=== PATIENT | female | born 1990 | race Caucasian/White ===

== ENCOUNTER 2019-05-14 13:47 | Outpatient (CLI) | payer BC, SELFPAY ==
--- NOTE | ~2019-05-14 | XR_ITS ---
EXAMINATION: XR chest 2V 05/14/2019 14:15 INDICATION: Cough, fever and body aches PROCEDURE: 2 view chest COMPARISON: No prior studies for comparison. FINDINGS: The lungs are clear. The cardiomediastinal silhouette is within normal limits. There are no pleural effusions. There is no pneumothorax suspected. IMPRESSION: 1: NO ACUTE CARDIOPULMONARY DISEASE. Reviewed, dictated and finalized at location A.
[2019-05-14 14:02] LABS: Basophils Absolute Auto 0.03 K/mm3 (0.00-0.10); Basophils Percent Auto 0.7 % (0.0-1.0); Eosinophils Absolute Auto 0.07 K/mm3 (0.02-0.50); Eosinophils Percent Auto 1.6 % (1.0-6.0); Hematocrit 36.9 % (35.0-49.0); Hemoglobin 11.8 g/dL (12.0-15.0); Immature Granulocyte Absolute 0.05 K/mm3 (0.00-0.00); Immature Granulocyte Percent A 1.1 % (0.0-0.0); Lymphocytes Absolute Auto 0.53 K/mm3 (1.10-4.50); Lymphocytes Percent Auto 12.2 % (18.0-42.0); Mean Corpuscular Hemoglobin 25.6 pg (27.0-31.0); Mean Platelet Volume 9.7 fl (9.2-11.8); Monocytes Absolute Auto 0.48 K/mm3 (0.10-0.90); Neutrophils Absolute Auto 3.2 K/mm3 (1.7-7.2); Neutrophils Percent Auto 73.4 % (50.0-70.0); Platelet Count Result 241 K/mm3 (150-420); Red Blood Count 4.61 M/mm3 (4.20-5.40); Red Cell Distribution Width 15.3 % (11.6-14.4); White Blood Count 4.4 K/mm3 (4.8-10.8)
[2019-05-14 14:19] LABS: Influenza Control Valid (Valid)
== END 2019-05-14 13:48 | disposition home or self-care (01) ==
LOC: CHSLAB 13:52
PROVIDERS: PCP Internal Medicine; Visit Provider Internal Medicine
DX: R05 Cough (principal); R50.9 Fever, unspecified; R52 Pain, unspecified; Z20.828 Contact with and (suspected) exposure to other viral communicable diseases
CPT/HCPCS: 36415; 71046; 85025; 87804

== ENCOUNTER → 2021-03-28 15:58 | Outpatient (REF) | payer BC, SELFPAY | LOC: ANHLAB 15:58 | PROVIDERS: PCP Internal Medicine; Visit Provider Nurse Practitioner | DX: D22.39 Melanocytic nevi of other parts of face (principal) | CPT/HCPCS: 88305 ==

== ENCOUNTER 2022-02-06 13:31 | Outpatient (CLI) | payer BC, SELFPAY ==
[2022-02-06 14:56] LABS: HIV 1/2 Ab P24 Ag Result Negative (Negative)
[2022-02-06 15:16] LABS: Hepatitis B Surface Antigen Negative (Negative)
[2022-02-06 15:33] LABS: Hepatitis C Virus Antibody Negative (Negative)
[2022-02-07 07:29] LABS: Rapid Plasma Reagin Non-Reactive (NonReactive)
== END 2022-02-06 13:32 | disposition home or self-care (01) ==
PROVIDERS: PCP Internal Medicine; Visit Provider Obstetrics & Gynecology
DX: Z20.2 Contact with and (suspected) exposure to infections with a predominantly sexual mode of transmission (principal); Z11.3 Encounter for screening for infections with a predominantly sexual mode of transmission
CPT/HCPCS: 36415; 86592; 86703; 86803; 87340; 87491; 87591; G0432

== ENCOUNTER 2025-01-05 13:24 | Outpatient (CLI) | payer BC, SELFPAY ==
--- NOTE | ~2025-01-05 | US_ITS ---
EXAMINATION: US venous doppler JAIDEN CHAPARRO, 01/05/2025 13:42 QUANTITATIVE MANAGER HISTORY: LUE SWELLING Comparison: None Technique: Multiple aguayo scale and color Doppler sonographic images were obtained of the internal jugular, subclavian, axillary, brachial, basilar, radial and ulnar veins. Findings: Venous System:Normal flow, augmentation and compressibility. No echogenic thrombus identified. Soft tissues: Soft tissues are unremarkable. Impression: Negative for DVT. Reviewed, dictated and finalized at location P. TITATIVE MANAGER Impression: Negative for DVT.
[2025-01-05 13:39] LABS: Hematocrit 36.4 % (35.0-49.0); Hemoglobin 11.4 g/dL (12.0-15.0); Mean Corpuscular HGB Conc 31.3 g/dL (32-36); Mean Corpuscular Hemoglobin 23.7 pg (27.0-31.0); Mean Corpuscular Volume 75.5 fL (78.0-102.0); Platelet Count Result 312 K/mm3 (150-420); Red Blood Count 4.82 M/mm3 (4.20-5.40); White Blood Count 8.1 K/mm3 (4.8-10.8)
[2025-01-05 14:02] LABS: INR 0.9; Partial Thromboplastin Time 25.1 Sec (23.9-30.70); Prothrombin Time 10.1 Seconds (9.50-12.1)
[2025-01-05 14:56] LABS: Alanine Aminotransferase 30 U/L (6-35); Albumin Level 4.4 g/dL (3.5-5.1); Alkaline Phosphatase 134 U/L (38-126); Anion Gap 13 mmol/L (4-12); Aspartate Amino Transferase 26 U/L (14-36); Blood Urea Nitrogen 14 mg/dL (7-17); Calcium 9.4 mg/dL (8.4-10.2); Carbon Dioxide 24 mmol/L (22-30); Chloride 106 mmol/L (98-107); Estimated Glomerular Filt Rate > 60; Glucose 135 mg/dL (65-110); Osmolality Calculated 298 mOsm/kg (285-295); Potassium 3.8 mmol/L (3.4-5.0); Sodium 143 mmol/L (137-145); Total Protein 7.2 g/dL (6.3-8.2)
[2025-01-05 17:26] LABS: Bilirubin,Total < 0.1 mg/dL (0.2-1.3)
== END 2025-01-05 13:25 | disposition home or self-care (01) ==
PROVIDERS: PCP Internal Medicine; Visit Provider Nurse Practitioner Family
DX: R22.32 Localized swelling, mass and lump, left upper limb (principal)
CPT/HCPCS: 36415; 80053; 85027; 85610; 85730; 93971

== ENCOUNTER 2025-01-08 12:55 | Emergency (ER) | payer BC, SELFPAY ==
[2025-01-08 12:55] VITALS: BP 127/73; PULSE 85; RESP 20; O2SAT 100
--- NOTE | 2025-01-08 13:05 | PC.NURSE ---
pt speaking with dr meyers on phone.
--- OUTSIDE RECORDS SUMMARY | 2025-01-08 15:50 | XMS_ITS | Clinical Summary ---
Author Organization [facility] [address] [place] Address [address] [place] [id number] Care Team Providers Care Coconut Cooker Name Role Phone Unknown, Notinfile Primary Care Provider Unavail able Allergies No known active allergies Medications No known medications Active Problems No known active problems Surgical History Surgery Date Site/Laterality Comments BACK SURGERY 02/19/2015 - 02/19/2016 Social History Tobacco Use Types Packs/Day Years Used Date Smoking Tobacco: Never Smokeless Tobacco: Never AUDIT-C Answer Date Recorded Q1: How often do you have a drink containing alc ohol? 2-4 times a month 03/05/2021 Average Number of Drinks Not on file 022 Frequency of Binge Drinking Not on file 02/19 Personal Safety Answer Date Recorded Getting School Help Needed Not on file 04/15 Comments Unknown Sex and Gender Information Value Date Recorded Sex Assigned at Not on file Legal Sex Female 9:03 PM TOOL SETTER APPRENTICE Gender Identity Not on file Sexual Orientation Not on file Last Filed Vital Signs Vital Sign Reading Time Taken Comments Blood Pressure 131/89 03/05/2021 5:35 PM TOOL SETTER APPRENTICE Pulse 133 03/05/2021 5:35 PM TOOL SETTER APPRENTICE Temperature 36.6 C (97.8 F) 03/05/2021 5:35 PM TOOL SETTER APPRENTICE Respiratory Rate 16 03/05/2021 5:35 PM TOOL SETTER APPRENTICE Oxygen Saturation 97% 03/05/2021 5:35 PM TOOL SETTER APPRENTICE Inhaled Oxygen Concentration - - Weight - - Height 172.7 cm (5' 8) 03/05/2021 5:35 PM TOOL SETTER APPRENTICE Body Mass Index - - Plan of Treatment Not on file Insurance [employer] Care Teams Coconut Cooker Relationship Specialty Start Date End Date Unknown, Notinfile PCP - General 03/05/21
--- OUTSIDE RECORDS SUMMARY | 2025-01-08 15:50 | XMS_ITS | Clinical Summary ---
Author Organization [facility] Address [address] [place] [id number] Care Team Providers Care Student Affairs Vice President Name Role Phone Unavailable Primary Care Provider Unavailabl e Social History Tobacco Use Types Packs/Day Years Used Date Smoking Tobacco: Never Assessed Comments Unknown Sex and Gender Information Value Date Recorded Sex Assigned at Not on file Legal Sex Female 8:13 PM CDT Gender Identity Not on file Sexual Orientation Not on file Last Filed Vital Signs Vital Sign Reading Time Taken Comments Blood Pressure 102/60 09/11/2011 4:49 PM CDT Pulse 72 09/11/2011 4:49 PM CDT Temperature - - Respiratory Rate - - Oxygen Saturation - - Inhaled Oxygen Concentration - - Weight 66.7 kg (147 lb) 09/11/2011 4:49 PM CDT Height 172.7 cm (5' 8) 09/11/2011 4:49 PM CDT Body Mass Index 22.35 09/11/2011 4:49 PM CDT Plan of Treatment Health Maintenance Due Date Last Done Comments Cervical Cancer Screening Pa p Smear (Age 30 to 64) Every 3 Years 1992 Annual Physical 11/09/1995 Hepatitis C 2010 DTaP, Tdap and Td Vaccines ( 1 - Tdap) 11/09/2011 Hepatitis B Vaccines (1 of 3 - 19+ 3-dose series) 11/09/2011 HPV Vaccines (1 - 3-dose SCD M series) 11/09/2019 Cervical Cancer Screening Pa p with HPV Testing (Age 30 to 64) Every 5 Years 2022 Cervical Cancer Screening with HPV 2022 COVID-19 Vaccine (2024-2 6 season) 2024 Influenza Adult (#1) 2024 Hepatitis A Vaccines Aged Out No long er eligible based on patient's age to complete this topic Meningococcal B Vaccine Aged Out No l onger eligible based on patient's age to complete this topic Meningococcal Vaccine Aged Out No bishop jes eligible based on patient's age to complete this topic Pneumococcal Vaccine: Pediat rics (0 to 5 Years) and At-Risk Patients (6 to 49 Years) Aged Out No longer eligible b ased on patient's age to complete this topic RSV Immunizations Under 20 Months Aged Out No longer eligible based on patient's age to complete this topic
== END 2025-01-08 13:11 | disposition left against medical advice (07) ==
LOC: CHSED 13:18
PROVIDERS: Emergency Provider Emergency Medicine; PCP Internal Medicine
DX: L98.8 Other specified disorders of the skin and subcutaneous tissue (principal)
CPT/HCPCS: 99199

== ENCOUNTER 2025-01-08 13:43 | Observation (INO) | payer BC, SELFPAY ==
[2025-01-08 13:53] VITALS: BP 140/88; PULSE 70; RESP 20; TEMP 36.8; O2SAT 100
--- NOTE | 2025-01-08 15:11 | ED.EXTPRO ---
HPI - Extremity Problem General Chief complaint: Extremity Problem,Nontraumatic <MONIE Acuna Last Filed: 01/11/25 14:11> Stated complaint: left arm infection <MONIE Acuna Last Filed: 01/11/25 14:11> Time Seen by Provider: 01/08/25 15:12 <MONIE Acuna Last Filed: 01/11/25 14:11> Focused HPI: Patient is a 34-year-old female who presents to the ED with report of infection to her left arm. Patient reports she first noticed an area of redness on Sunday night to her L mid forearm. She had a slight streak of redness to her elbow. States she has seen her PCP for this. Was initially started on Augmentin and Doxycycline, but denied improvement. Was switched to Ciprofloxacin and Bactrim last night, but reports the redness is not encircling her forearm and streaking all the way to her armpit. Reports warmth. Denies fevers. GENERAL: Well-appearing, well-nourished, and in no acute distress. HEAD: Normocephalic, atraumatic. CHEST: Clear to auscultation. ?No respiratory distress. HEART: Regular rate and rhythm.? Radial pulses intact MSK: Area of deep purple discoloration to L ventral forearm, approx 2x3cm irregular shape. Surrounding erythema, extending diffusely and circumferentially throughout L forearm with warmth, swelling, focal tenderness to palpation. Lymphangitis streaking extending to L axillary region. Small vesicular lesion to ventral forearm with serous fluid NEURO: ?Alert and oriented x3. Patient screened in triage and initial orders placed.? ?Additional care and disposition to be based upon?diagnostic testing and treatment. <MONIE Acuna Last Filed: 01/11/25 14:11> Source: patient <MONIE Acuna Last Filed: 01/11/25 14:11> Mode of arrival: ambulatory <MONIE Acuna Last Filed: 01/11/25 14:11> Limitations: no limitations <MONIE Acuna Last Filed: 01/11/25 14:11> History of Present Illness HPI Narrative: I agree with the HPI <Gurvinder Tucker MD - Last Filed: 01/11/25 14:15> Related Data Home medications: Home Medications ?Medication ?Instructions ?Recorded ?Confirmed ?Last Taken ?Type ascorbic acid (vitamin C) 500 mg 500 mg PO DAILY 11/24/20 01/08/25 Unknown History capsule cholecalciferol (vitamin D3) 25 25 mcg PO DAILY 11/24/20 01/08/25 Unknown History mcg (1,000 unit) capsule multivitamin (Daily Multi-Vitamin 1 tablet PO DAILY 11/24/20 01/08/25 Unknown History tablet) multivitamin with minerals 1 tablet PO DAILY 11/24/20 01/08/25 Unknown History (Hair,Skin and Nails tablet) vitamin E mixed 400 unit capsule 400 unit PO DAILY 11/24/20 01/08/25 Unknown History escitalopram oxalate 20 mg tablet 20 mg PO DAILY 02/15/21 01/08/25 Unknown History melatonin 10 mg capsule 10 mg PO HS 01/08/25 01/08/25 Unknown History <Mia Singh PA-C - Last Filed: 01/11/25 14:11> Allergies/Adverse reactions: Allergies Allergy/AdvReac Type Severity Reaction Status Date / Time No Known Allergies Allergy Verified 01/08/25 13:56 <Mia Singh PA-C - Last Filed: 01/11/25 14:11> Review of Systems Review of Systems: All systems reviewed & are unremarkable except as noted in HPI and below <Gurvinder Tucker MD - Last Filed: 01/11/25 14:15> [facility] Past Medical History Medical History: Medical History LGSIL on Pap smear of cervix <Mia Singh PA-C - Last Filed: 01/11/25 14:11> Surgical History Surgical History: Surgical History History of back surgery <Mia Singh PA-C - Last Filed: 01/11/25 14:11> Family History Family History: Family History (Reviewed 02/14/23 @ 15:37 by Shahnaz Ramirez [facility]) Grandparent Lymphoma Father Hypertension <Mia Singh PA-C - Last Filed: 01/11/25 14:11> Social History Social History: Social History (Updated 02/14/23 @ 15:37 by Shahnaz Ramirez [facility]) Smoking status: Never smoker Alcohol intake: former Substance use: never Substance use type: does not use Do You Feel Safe in your Home?: Yes Lack of Transportation: No Lack of Food: Never True Current Housing: I Have Housing Concerned About Future Housing: No Difficulty Paying Gas/Electric Bills: No Difficulty Paying for Meds: No Currently Unemployed: No Education: Bachelor's Degree Difficulty w/ Childcare or Family Care: No Spiritual care concerns: No <Mia Singh PA-C - Last Filed: 01/11/25 14:11> Exam Narrative: APPEARANCE: Well appearing, no pain, no distress, well-nourished. HEAD: normocephalic, atraumatic. EYES: PERRLA/EOMI, conjunctivae clear. NOSE: Normal no drainage EARS:TMS clear with good light reflex. THROAT: Pharynx clear, no exudate. NECK: Supple. No adenopathy, no masses. RESPIRATORY: Airway patent, respirations nonlabored. Clear to auscultation bilaterally, no rales, rhonchi, wheezing. CARDIOVASCULAR: Regular rate and rhythm without murmurs rubs or gallops. ABDOMINAL: Soft, nontender, nondistended, normal bowel sounds MUSCULOSKELETAL: Moves all extremities. Strength/ROM intact, No edema, No calf tenderness. NEURO: Alert. Cranial nerves II through XII intact. Good gait. Good coordination SKIN: Cellulitis of left forearm tracking to left axilla PSYCHIATRIC: Normal affect/mood. <Gurvinder Tucker MD - Last Filed: 01/11/25 14:15> Course Vital Signs Vital signs: Vital Signs Temperature 98.3 F 01/08/25 13:53 Pulse Rate 70 01/08/25 13:53 Respiratory Rate 20 01/08/25 13:53 Blood Pressure 140/88 01/08/25 13:53 Pulse Oximetry 100 01/08/25 13:53 Oxygen Delivery Room Air 01/08/25 13:53 Temperature 97.8 F 01/10/25 14:00 Pulse Rate 65 01/10/25 14:00 Respiratory Rate 17 01/10/25 14:00 Blood Pressure 155/67 H 01/10/25 14:00 Pulse Oximetry 98 01/10/25 14:00 Oxygen Delivery Room Air 01/10/25 08:00 <Mia Singh PA-C - Last Filed: 01/11/25 14:11> Vital Signs Temperature 98.3 F 01/08/25 13:53 Pulse Rate 70 01/08/25 13:53 Respiratory Rate 20 01/08/25 13:53 Blood Pressure 140/88 01/08/25 13:53 Pulse Oximetry 100 01/08/25 13:53 Oxygen Delivery Room Air 01/08/25 13:53 Temperature 97.8 F 01/10/25 14:00 Pulse Rate 65 01/10/25 14:00 Respiratory Rate 17 01/10/25 14:00 Blood Pressure 155/67 H 01/10/25 14:00 Pulse Oximetry 98 01/10/25 14:00 Oxygen Delivery Room Air 01/10/25 08:00 <Gurvinder Tucker MD - Last Filed: 01/11/25 14:15> MDM - Extremity (Nontraumatic) MDM Narrative Medical decision making narrative: MSE by TRISTIN in triage. <Mia Singh PA-C - Last Filed: 01/11/25 14:11> MSE by TRISTIN in triage. 34-year-old female present to the emergency department for evaluation for worsening cellulitis of the left upper extremity. Patient had been on log went in and then patient was transitioned to Cipro and Bactrim and patient is still having worsening symptoms. Patient does have a leukocytosis and worsening cellulitis. Patient was admitted for further had IV antibiotics. Case was discussed with hospitalist. Patient discomfort with plan for admission. Patient was stable at time of admission. <Gurvinder Tucker MD - Last Filed: 01/11/25 14:15> Differential Diagnosis Differential diagnosis: Likely cellulitis <Gurvinder Tucker MD - Last Filed: 01/11/25 14:15> Lab Data Result diagrams: 01/10/25 04:13 01/10/25 04:13 <DAYAMI AcunaC - Last Filed: 01/11/25 14:11> Labs: Lab Results 01/08/25 Range/Units 15:29 WBC 11.1 H (4.5-10.0) K/mm3 RBC 4.55 (4.2-5.4) M/mm3 Hgb 10.8 L (12.0-15.0) g/dL Hct 34.5 L (37.0-47.0) % MCV 75.8 L (80-100) fl MCH 23.7 L (26-34) pg MCHC 31.3 L (32-36) g/dl RDW 15.8 H (11.5-14.5) % Plt Count 288 (150-375) k/mm3 MPV 9.2 (7.4-10.4) fl Immature Gran % (Auto) 0.4 (0-0.5) % Neut % (Auto) 67.0 (45.5-73.1) % Lymph % (Auto) 20.4 (18.3-44.2) % [place] % (Auto) 8.2 (2.6-8.5) % Eos % (Auto) 3.5 (0-4.4) % Baso % (Auto) 0.5 (0.2-1.2) % Lymph # (Auto) 2.26 (0.9-3.2) K/mm3 [place] # (Auto) 0.9 H (0.1-0.6) K/mm3 Eos # (Auto) 0.4 H (0-0.3) K/mm3 Baso # (Auto) 0.1 (0.0-0.1) K/mm3 Abs Immat Gran (auto) 0.04 H (0.00-0.031) K/mm3 Absolute Neuts (auto) 7.4 H (1.3-6.7) K/mm3 Absolute Nucleated RBC 0.000 (0.0-0.012) K/mm3 Nucleated RBC % 0.0 (0.0-0.2) % ESR 61 H (0-20) mm/hr Sodium 138 (137-145) mmol/L Potassium 4.2 (3.4-5.0) mmol/L Chloride 107 (98-107) mmol/L Carbon Dioxide 22 (22-30) mmol/L Anion Gap 9 (4-12) mmol/L BUN 12 (7-17) mg/dL Creatinine 0.66 L (0.7-1.0) mg/dL Estim Creat Clear Calc 123 ml/min Estimated GFR > 60 (59 - ) Glucose 100 (65-110) mg/dL Lactic Acid 1.4 (0.7-2.0) mmol/L Calcium 9.0 (8.4-10.2) mg/dL Total Bilirubin 0.3 (0.2-1.3) mg/dL AST 22 (14-36) U/L ALT 28 (6-35) U/L Alkaline Phosphatase 144 H (38-126) U/L C-Reactive Protein 4.2 H (<1.0) mg/dL Total Protein 7.4 (6.3-8.2) g/dL Albumin 4.1 (3.5-5.1) g/dL <Mia Singh PA-C - Last Filed: 01/11/25 14:11> Lab Results 01/08/25 Range/Units 15:29 WBC 11.1 H (4.5-10.0) K/mm3 RBC 4.55 (4.2-5.4) M/mm3 Hgb 10.8 L (12.0-15.0) g/dL Hct 34.5 L (37.0-47.0) % MCV 75.8 L (80-100) fl MCH 23.7 L (26-34) pg MCHC 31.3 L (32-36) g/dl RDW 15.8 H (11.5-14.5) % Plt Count 288 (150-375) k/mm3 MPV 9.2 (7.4-10.4) fl Immature Gran % (Auto) 0.4 (0-0.5) % Neut % (Auto) 67.0 (45.5-73.1) % Lymph % (Auto) 20.4 (18.3-44.2) % [place] % (Auto) 8.2 (2.6-8.5) % Eos % (Auto) 3.5 (0-4.4) % Baso % (Auto) 0.5 (0.2-1.2) % Lymph # (Auto) 2.26 (0.9-3.2) K/mm3 [place] # (Auto) 0.9 H (0.1-0.6) K/mm3 Eos # (Auto) 0.4 H (0-0.3) K/mm3 Baso # (Auto) 0.1 (0.0-0.1) K/mm3 Abs Immat Gran (auto) 0.04 H (0.00-0.031) K/mm3 Absolute Neuts (auto) 7.4 H (1.3-6.7) K/mm3 Absolute Nucleated RBC 0.000 (0.0-0.012) K/mm3 Nucleated RBC % 0.0 (0.0-0.2) % ESR 61 H (0-20) mm/hr Sodium 138 (137-145) mmol/L Potassium 4.2 (3.4-5.0) mmol/L Chloride 107 (98-107) mmol/L Carbon Dioxide 22 (22-30) mmol/L Anion Gap 9 (4-12) mmol/L BUN 12 (7-17) mg/dL Creatinine 0.66 L (0.7-1.0) mg/dL Estim Creat Clear Calc 123 ml/min Estimated GFR > 60 (59 - ) Glucose 100 (65-110) mg/dL Lactic Acid 1.4 (0.7-2.0) mmol/L Calcium 9.0 (8.4-10.2) mg/dL Total Bilirubin 0.3 (0.2-1.3) mg/dL AST 22 (14-36) U/L ALT 28 (6-35) U/L Alkaline Phosphatase 144 H (38-126) U/L C-Reactive Protein 4.2 H (<1.0) mg/dL Total Protein 7.4 (6.3-8.2) g/dL Albumin 4.1 (3.5-5.1) g/dL <Gurvinder Tucker MD - Last Filed: 01/11/25 14:15> Discharge Plan Discharge Clinical Impression: Cellulitis of left upper extremity Cellulitis Qualifiers: Site of cellulitis: extremity Site of cellulitis of extremity: upper extremity Laterality: left Qualified Code(s): L03.114 - Cellulitis of left upper limb <Mia Singh PA-C - Last Filed: 01/11/25 14:11> Patient Disposition: Still a Patient <Mia Singh PA-C - Last Filed: 01/11/25 14:11> Condition: Stable <Mia Singh PA-C - Last Filed: 01/11/25 14:11>
[2025-01-08 15:36] LABS: Hematocrit 34.5 % (37.0-47.0); Hemoglobin 10.8 g/dL (12.0-15.0); Immature Granulocyte Percent A 0.4 % (0-0.5); Lymphocytes Absolute Auto 2.26 K/mm3 (0.9-3.2); Mean Corpuscular HGB Conc 31.3 g/dl (32-36); Mean Corpuscular Hemoglobin 23.7 pg (26-34); Mean Corpuscular Volume 75.8 fl (80-100); Nucleated Red Blood Cells Absolute Auto 0.000 K/mm3 (0.0-0.012); Nucleated Red Blood Cells Perc 0.0 % (0.0-0.2); Platelet Count Result 288 k/mm3 (150-375); Red Blood Count 4.55 M/mm3 (4.2-5.4); White Blood Count 11.1 K/mm3 (4.5-10.0)
[2025-01-08 15:49] LABS: Alanine Aminotransferase 28 U/L (6-35); Albumin Level 4.1 g/dL (3.5-5.1); Alkaline Phosphatase 144 U/L (38-126); Anion Gap 9 mmol/L (4-12); Aspartate Amino Transferase 22 U/L (14-36); Bilirubin,Total 0.3 mg/dL (0.2-1.3); Blood Urea Nitrogen 12 mg/dL (7-17); CRP 4.2 mg/dL (<1.0); Calcium 9.0 mg/dL (8.4-10.2); Carbon Dioxide 22 mmol/L (22-30); Chloride 107 mmol/L (98-107); Estimated CRCL calculation 123 ml/min; Estimated Glomerular Filt Rate > 60; Glucose 100 mg/dL (65-110); Potassium 4.2 mmol/L (3.4-5.0); Sodium 138 mmol/L (137-145); Total Protein 7.4 g/dL (6.3-8.2)
[2025-01-08 16:13] VITALS: BP 136/93; PULSE 85; RESP 18; O2SAT 97
[2025-01-08] MEDS: VANCOMYCIN 1,500 MG/NS 500 ML 1,500 MG/500 ML BAG 250 MG IVPB (16:53)
[2025-01-08 17:24] VITALS: BP 121/85; PULSE 84; RESP 16; TEMP 37; O2SAT 100
--- NOTE | 2025-01-08 17:27 | WPCEDHO ---
ED Hand Off Checklist All vitals saved:yes IV Site documented:yes All med administrations documented:yes Triage Note Triage Note patient here for left arm 01/08/25 16:25 infection, was treated with IM injections, sent home with oral antibiotics and the redness has worsened. this started Sunday agree with triage note Allergies No Known Allergies Allergy (Verified 01/08/25 13:56) Family History (Last Reviewed 02/14/23 @ 15:37 by Shahnaz Ramirez SAFETY DEPOSIT CLERK) Grandparent Lymphoma Father Hypertension Active Medications including assessments/comments Vancomycin HCl (Vancomycin 1,500 Mg/Ns 500 Ml) 1,500 mg in 500 mls @ 250 mls/hr IVPB ONCE ONE Stop: 01/08/25 18:33 Last Admin: 01/08/25 16:53 Dose: 250 mls/hr Documented By: ANT Infusion/Titration Document 01/08/25 16:53 ANT (Rec: 01/08/25 16:54 ANT [id number]) Intake IV Site Peripheral Access Right Forearm Container Volume 500 Waste Amount 0 Dosing Infusion Rate 250 Increase/Decrease Started Elapsed Time Elapsed Time ( 0m minutes) Interventions/Assessments IV / Saline Lock, Insert Start: 01/08/25 15:22 Freq: ONCE Status: Active Protocol: Document 01/08/25 15:31 ELB (Rec: 01/08/25 15:31 ELB [id number]) IV Assessment Peripheral Access Right Forearm IV Catheter Access Initiated IV Insertion Date 01/08/25 IV Insertion Time 15:31 Catheter Gauge 20 IV Insertion 1 Attempts Ultrasound Used for No Placement IV Site Assessment WNL IV Care and WNL Maintenance Last Vital Signs Temperature 98.6 F 01/08/25 17:24 Pulse Rate 84 01/08/25 17:24 Respiratory Rate 16 01/08/25 17:24 Pulse Oximetry 100 01/08/25 17:24 Blood Pressure 121/85 01/08/25 17:24 Blood Pressure Mean 97 01/08/25 17:24 Oxygen Delivery Room Air 01/08/25 13:53 Weight 89.2 kg 01/08/25 16:25 Last Result - Abnormals Only WBC 11.1 K/mm3 (4.5-10.0) H 01/08/25 15:29 Hgb 10.8 g/dL (12.0-15.0) L 01/08/25 15:29 Hct 34.5 % (37.0-47.0) L 01/08/25: MCV 75.8 fl (80-100) L 01/08/25: MCH 23.7 pg (26-34) L 01/08/25: MCHC 31.3 g/dl (32-36) L 01/08/25: RDW 15.8 % (11.5-14.5) H 01/08/25: [place] # (Auto) 0.9 K/mm3 (0.1-0.6) H 01/08/25: Eos # (Auto) 0.4 K/mm3 (0-0.3) H 01/08/25: Abs Immat Gran (auto) 0.04 K/mm3 (0.00-0.031) H 01/08/25: Absolute Neuts (auto) 7.4 K/mm3 (1.3-6.7) H 01/08/25: ESR 61 mm/hr (0-20) H 01/08/25: Creatinine 0.66 mg/dL (0.7-1.0) L 01/08/25: Alkaline Phosphatase 144 U/L (38-126) H 01/08/25: C-Reactive Protein 4.2 mg/dL (<1.0) H 01/08/25: Most Recent Suicide Severity Rating Suicide Severity Rating NO RISK INDICATED 01/08/25 16:25
[2025-01-08] MEDS: ceFAZolin 1 GM in SODIUM CHLORIDE 0.9% IV 50 ML 100 ML IVPB (18:03)
--- NOTE | 2025-01-08 18:56 | PM.IMHP ---
H&P: HPI History of Present Illness Date/Time: 01/08/25 18:56 Chief Complaint: Cellulitis Narrative: 34-year-old female with a past medical history of anxiety presents to the ED on 01/08/2025 with complaints of left arm redness. Patient first noticed the reddened area to her left mid forearm on Sunday evening stating it was roughly the size of the half dollar but later progressed to her elbow. Sunday, 01/05, she went to urgent care and received Augmentin and doxycycline which she states did not help. Patient was switched to ciprofloxacin and Bactrim on 01/07 which still has not improved. The redness has continued to spread despite her p.o. antibiotics and began streaking to her armpit today. Patient states it is tender to touch and warm. She denies fever, chills or injury to that arm. Initial vital signs 140/88, heart rate 70, respirations 20, afebrile and 100% on room air WBC 11.1, creatinine 0.66 alk phos 144, CRP 4.2 Left upper extremity Doppler study completed on 01/05 negative for DVT Review of Systems Review of Systems: All systems reviewed & are unremarkable except as noted in HPI and below PMFSH Past Medical History Medical History LGSIL on Pap smear of cervix Surgical History Surgical History History of back surgery Family History Family History Grandparent Lymphoma Father Hypertension Social History Social History (Updated 02/14/23 @ 15:37 by Shahnaz Ramirez CMA) Smoking status: Never smoker Alcohol intake: former Substance use: never Substance use type: does not use Do You Feel Safe in your Home?: Yes Lack of Transportation: No Lack of Food: Never True Current Housing: I Have Housing Concerned About Future Housing: No Difficulty Paying Gas/Electric Bills: No Difficulty Paying for Meds: No Currently Unemployed: No Education: Bachelor's Degree Difficulty w/ Childcare or Family Care: No Spiritual care concerns: No Meds Home Medications and Allergies Home Medications ?Medication ?Instructions ?Recorded ?Confirmed ?Type ascorbic acid (vitamin C) 500 mg 500 mg PO DAILY 11/24/20 01/08/25 History capsule cholecalciferol (vitamin D3) 25 25 mcg PO DAILY 11/24/20 01/08/25 History mcg (1,000 unit) capsule multivitamin (Daily Multi-Vitamin 1 tablet PO DAILY 11/24/20 01/08/25 History tablet) multivitamin with minerals 1 tablet PO DAILY 11/24/20 01/08/25 History (Hair,Skin and Nails tablet) vitamin E mixed 400 unit capsule 400 unit PO DAILY 11/24/20 01/08/25 History zinc 50 mg tablet 50 mg PO DAILY 11/24/20 01/08/25 History escitalopram oxalate 20 mg tablet 20 mg PO DAILY 02/15/21 01/08/25 History melatonin 10 mg capsule 10 mg PO HS 01/08/25 01/08/25 History Allergies Allergy/AdvReac Type Severity Reaction Status Date / Time No Known Allergies Allergy Verified 01/08/25 13:56 Vital Signs Vital Signs - 24 hr 01/08/25 13:53 01/08/25 16:13 01/08/25 17:24 Temperature 98.3 F 98.6 F Pulse Rate 70 85 84 Respiratory Rate 20 18 16 Blood Pressure 140/88 136/93 H 121/85 Pulse Oximetry 100 97 100 Oxygen Delivery Room Air Exam Narrative: GENERAL: non-toxic appearing, in no acute distress. HEAD: Normocephalic, atraumatic. EYES: PERRLA. Conjunctivae clear. NOSE: Normal no drainage. THROAT: Pharynx clear, no exudate. NECK: Trachea midline. No adenopathy, no masses. RESPIRATORY: Airway patent, respirations nonlabored. CTA. CARDIOVASCULAR: Regular rate and rhythm BREASTS: Defer GASTROINTESTINAL: Abdomen is soft and nontender. No organomegaly. Bowel sounds normal in all quadrants. GENITOURINARY: Defer MUSCULOSKELETAL: Moves all extremities. Irregular area of purple to left ventral forearm surrounded by erythema extending throughout left forearm with warmth and swelling, tenderness to palpation. Lymphangitis streaking to left axillary region. Distal pulses intact. Tactile sensation intact SKIN: Warm, dry, normal color with the exception of her left arm NEURO: A&O X4. Speech clear PSYCHIATRIC: Normal interaction H&P: Results Labs Labs: Short CBC 01/08/25 Range/Units 15:29 WBC 11.1 H (4.5-10.0) K/mm3 Hgb 10.8 L (12.0-15.0) g/dL Hct 34.5 L (37.0-47.0) % Plt Count 288 (150-375) k/mm3 BMP 01/08/25 15:29 Sodium 138 Potassium 4.2 Chloride 107 Carbon Dioxide 22 BUN 12 Creatinine 0.66 L Glucose 100 Calcium 9.0 Liver Function 01/08/25 Range/Units 15:29 Total Bilirubin 0.3 (0.2-1.3) mg/dL AST 22 (14-36) U/L ALT 28 (6-35) U/L Alkaline Phosphatase 144 H (38-126) U/L Albumin 4.1 (3.5-5.1) g/dL Assessment and Plan Assessment and plan (1) Cellulitis: Qualifiers: Laterality: left Site of cellulitis: extremity Site of cellulitis of extremity: upper extremity Qualified Code(s): L03.114 - Cellulitis of left upper limb Code(s): L03.90 - Cellulitis, unspecified Status: Acute Assessment and Plan: Irregular area of purple to left ventral forearm surrounded by erythema extending throughout left forearm with warmth and swelling, tenderness to palpation. Lymphangitis streaking to left axillary region. Distal pulses intact. Tactile sensation intact. Unknown etiology. -failed outpatient Augmentin, doxycycline, ciprofloxacin and Bactrim -Ancef and vancomycin started on 01/08 -no concern for abscess, compartment syndrome -acetaminophen, Toradol, hydrocodone p.r.n. (2) Anxiety: Code(s): F41.9 - Anxiety disorder, unspecified Status: Acute Assessment and Plan: Patient's grandfather few days ago. His services tomorrow and patient is anxious about missing it. -continue Lexapro -and Atarax p.r.n. Plan Diet: Regular GI prophylaxis: NA DVT prophylaxis: Lovenox lines/drains: PIV Fluids: 1 L LR Code status: Full Quality VTE Prophylaxis VTE prophylaxis: pharmacologic ordered Hospitalist [facility] Advance Care Plan I have confirmed that the patient's Advanced Care Plan is present, code status is documented, or surrogate decision maker is listed in patient medical record.: Yes Medication Reconciliation I have utilized all available resources to obtain, update and review the patients current medications (includes all prescriptions, OTC, herbals, cannabis, and nutritional supplements).: Yes
[2025-01-08 19:13] VITALS: BMI 32.8
--- NOTE | 2025-01-08 19:29 | ADMGEN ---
This patient, Miriam Rodriguez, was admitted to 2 Medical Room 261-01. Patient/family oriented to hospital policies and general routines including ID bracelet, bed and alarms, visiting hours, pain management, procedures, bathroom and other care routines, personal items, smoking policy, room service/diet, and visiting hours. Information on how to activate the Rapid Response Team has been discussed. Patient/Family are encouraged to report perceived risks to care and to ask questions if they do not understand what they are told or what they should do.
[2025-01-08 19:31] VITALS: PULSE 75; RESP 20; TEMP 36.7; O2SAT 98
[2025-01-08 19:42] VITALS: BP 140/86
[2025-01-08] MEDS: LACTATED RINGERS 1,000 ML 999 ML IV CONT (20:08)
[2025-01-08] MEDS: ACETAMINOPHEN 325 MG TABLET 650 MG PO (20:09)
[2025-01-08 21:55] VITALS: BP 116/49; PULSE 79; RESP 18; TEMP 36.4; O2SAT 100
[2025-01-08] MEDS: MELATONIN 5 MG TABLET PO (21:57)
[2025-01-08] MEDS: ENOXAPARIN 40 MG/0.4 ML SYRINGE SUB-Q (21:58)
[2025-01-09] MEDS: ceFAZolin 1 GM in SODIUM CHLORIDE 0.9% IV 50 ML 100 ML IVPB ×3 (02:02→17:09)
[2025-01-09] MEDS: VANCOMYCIN 1,500 MG/NS 500 ML 1,500 MG/500 ML BAG 250 MG IVPB ×2 (05:21→17:43)
[2025-01-09 06:00] VITALS: BP 139/87; PULSE 82; RESP 18; TEMP 36.5; O2SAT 98
--- NOTE | 2025-01-09 07:15 | P.PNIM_ITS ---
Progress Note: A&P Assessment and Plan (1) Cellulitis: Qualifiers: Laterality: left Site of cellulitis: extremity Site of cellulitis of extremity: upper extremity Qualified Code(s): L03.114 - Cellulitis of left upper limb Code(s): L03.90 - Cellulitis, unspecified Status: Acute Assessment and Plan: Irregular area of purple to left ventral forearm surrounded by erythema extending throughout left forearm with warmth and swelling, tenderness to palpation. Lymphangitis streaking to left axillary region. Distal pulses intact. Tactile sensation intact. Unknown etiology. * failed outpatient Augmentin, doxycycline, ciprofloxacin and Bactrim * Ancef and vancomycin started on 01/08 * no concern for abscess, compartment syndrome * acetaminophen, Toradol, hydrocodone p.r.n. * Blood cultures pending * Leukocytosis has resolved (2) Anxiety: Code(s): F41.9 - Anxiety disorder, unspecified Status: Acute Assessment and Plan: Patient's grandfather few days ago. His services are today and patient is anxious about missing it. * continue Lexapro * Atarax p.r.n. Plan Diet: Regular GI prophylaxis: NA DVT prophylaxis: Lovenox lines/drains: PIV Fluids: 1 L LR Code status: Full Subjective Date/time seen: 01/09/25 07:15 Interval history: 34-year-old female with a past medical history of anxiety presents to the ED on 01/08/2025 with complaints of left arm redness. Patient first noticed the reddened area to her left mid forearm on Sunday evening stating it was roughly the size of the half dollar but later progressed to her elbow. 01/09/2025 Patient in bed at time of examination. Leukocytosis has resolved. No major electrolyte abnormalities. Patient states that the redness/swelling/pain has improved greatly since yesterday. Lymphangitis still appears to be streaking superiorly up from left mid forearm but is minimally tender on palpation. Blood culture still pending -stressed importance of obtaining these results as she has failed for other oral antibiotics in the outpatient setting already. Review of Systems Review of Systems: All systems reviewed & are unremarkable except as noted in HPI and below Exam Narrative: GENERAL: non-toxic appearing, in no acute distress. HEAD: Normocephalic, atraumatic. EYES: PERRLA. Conjunctivae clear. NOSE: Normal no drainage. THROAT: Pharynx clear, no exudate. NECK: Trachea midline. No adenopathy, no masses. RESPIRATORY: Airway patent, respirations nonlabored. CTA. CARDIOVASCULAR: Regular rate and rhythm BREASTS: Defer GASTROINTESTINAL: Abdomen is soft and nontender. No organomegaly. Bowel sounds normal in all quadrants. GENITOURINARY: Defer MUSCULOSKELETAL: Moves all extremities. Irregular area of purple to left ventral forearm surrounded by improving erythema extending throughout left forearm with warmth and swelling, tenderness to palpation. Lymphangitis streaking to left axillary region. Distal pulses intact. Tactile sensation intact SKIN: Warm, dry, normal color with the exception of her left arm NEURO: A&O X4. Speech clear PSYCHIATRIC: Normal interaction Objective Data Vital Signs Vital Signs: Vital Signs - 24 hr 01/08/25 13:53 01/08/25 16:13 01/08/25 17:24 Temperature 98.3 F 98.6 F Pulse Rate 70 85 84 Respiratory Rate 20 18 16 Blood Pressure 140/88 136/93 H 121/85 Pulse Oximetry 100 97 100 Oxygen Delivery Room Air 01/08/25 19:31 01/08/25 19:42 01/08/25 21:55 Temperature 98.1 F 97.5 F L Pulse Rate 75 79 Respiratory Rate 20 18 Blood Pressure 140/86 116/49 L Pulse Oximetry 98 100 Oxygen Delivery 01/09/25 06:00 Temperature 97.7 F Pulse Rate 82 Respiratory Rate 18 Blood Pressure 139/87 Pulse Oximetry 98 Oxygen Delivery Intake/Output Intake/Output: Intake & Output 01/06/25 01/07/25 01/08/25 01/09/25 23:59 23:59 23:59 23:59 Intake Total 50 750 Balance 50 750 Meds/Results Medications: Active Medications Generic Name Dose Route Start Last Admin Trade Name Freq PRN Reason Stop Dose Admin Acetaminophen 650 mg 01/08/25 19:15 01/08/25 20:09 Acetaminophen 325 Mg Tablet PO 650 mg Q6H PRN Administration Mild Pain (1-3) or Fever Hydrocodone Bitart/Acetaminophen 1 tab 01/08/25 19:17 Hydrocodone/Acetaminophen (*Crx) 5-325 Mg Tablet PO Q4H PRN Pain Rated 4-6 Enoxaparin Sodium 40 mg 01/08/25 21:00 01/08/25 21:58 Enoxaparin 40 Mg/0.4 Ml Syringe SUB-Q 40 mg HS KELLI Administration Escitalopram Oxalate 20 mg 01/09/25 09:00 Escitalopram Oxalate 10 Mg Tablet PO DAILY [facility] Hydroxyzine HCl 25 mg 01/08/25 20:41 01/09/25 02:30 Hydroxyzine Hcl 25 Mg Tablet PO 25 mg Q6H PRN Administration Anxiety Cefazolin Sodium 1 gm/ Sodium 50 mls @ 100 mls/hr 01/09/25 02:00 01/09/25 02:32 Chloride IVPB Infused Q8H KELLI Infusion Vancomycin HCl 1,500 mg in 500 mls @ 250 mls/hr 01/09/25 05:00 01/09/25 05:21 Vancomycin 1,500 Mg/Ns 500 Ml IVPB 250 mls/hr Q12H KELLI Administration Ketorolac Tromethamine 30 mg 01/08/25 19:15 Ketorolac 30 Mg/Ml Vial (*Bkc) IV PUSH Q6H PRN Pain Rated 4-6 Melatonin 5 mg 01/08/25 21:00 01/08/25 21:57 Melatonin 5 Mg Tablet PO 5 mg HS KELLI Administration Multivitamins Therapeutic 1 tablet 01/09/25 09:00 Multivitamins Therapeutic Tab (*Bkc) PO DAILY [facility] Vitamin D 25 mcg 01/09/25 09:00 Cholecalciferol (Vitamin D3) 25 Mcg (1,000 Units) Tablet PO DAILY [facility] Zinc Sulfate 220 mg 01/09/25 09:00 Zinc Sulfate 220 Mg Capsule PO DAILY [facility] Labs Labs: Laboratory Results - last 24 hr 01/08/25 15:29 WBC 11.1 H RBC 4.55 Hgb 10.8 L Hct 34.5 L MCV 75.8 L MCH 23.7 L MCHC 31.3 L RDW 15.8 H Plt Count 288 MPV 9.2 Immature Gran % (Auto) 0.4 Neut % (Auto) 67.0 Lymph % (Auto) 20.4 Dare % (Auto) 8.2 Eos % (Auto) 3.5 Baso % (Auto) 0.5 Lymph # (Auto) 2.26 Dare # (Auto) 0.9 H Eos # (Auto) 0.4 H Baso # (Auto) 0.1 Abs Immat Gran (auto) 0.04 H Absolute Neuts (auto) 7.4 H Absolute Nucleated RBC 0.000 Nucleated RBC % 0.0 ESR 61 H Sodium 138 Potassium 4.2 Chloride 107 Carbon Dioxide 22 Anion Gap 9 BUN 12 Creatinine 0.66 L Estim Creat Clear Calc 123 Estimated GFR > 60 Glucose 100 Lactic Acid 1.4 Calcium 9.0 Total Bilirubin 0.3 AST 22 ALT 28 Alkaline Phosphatase 144 H C-Reactive Protein 4.2 H Total Protein 7.4 Albumin 4.1 Quality VTE Prophylaxis VTE prophylaxis: pharmacologic ordered
[2025-01-09 08:37] LABS: Hematocrit 30.3 % (37.0-47.0); Hemoglobin 9.2 g/dL (12.0-15.0); Immature Granulocyte Percent A 0.8 % (0-0.5); Lymphocytes Absolute Auto 2.51 K/mm3 (0.9-3.2); Mean Corpuscular HGB Conc 30.4 g/dl (32-36); Mean Corpuscular Hemoglobin 23.2 pg (26-34); Mean Corpuscular Volume 76.3 fl (80-100); Nucleated Red Blood Cells Absolute Auto 0.000 K/mm3 (0.0-0.012); Nucleated Red Blood Cells Perc 0.0 % (0.0-0.2); Platelet Count Result 256 k/mm3 (150-375); Red Blood Count 3.97 M/mm3 (4.2-5.4); White Blood Count 8.4 K/mm3 (4.5-10.0)
[2025-01-09 09:08] LABS: Alanine Aminotransferase 21 U/L (6-35); Albumin Level 3.4 g/dL (3.5-5.1); Alkaline Phosphatase 119 U/L (38-126); Anion Gap 5 mmol/L (4-12); Aspartate Amino Transferase 19 U/L (14-36); Bilirubin,Total 0.3 mg/dL (0.2-1.3); Blood Urea Nitrogen 9 mg/dL (7-17); CRP 4.0 mg/dL (<1.0); Calcium 8.7 mg/dL (8.4-10.2); Carbon Dioxide 24 mmol/L (22-30); Chloride 108 mmol/L (98-107); Estimated CRCL calculation 132 ml/min; Estimated Glomerular Filt Rate > 60; Glucose 88 mg/dL (65-110); Potassium 4.3 mmol/L (3.4-5.0); Sodium 137 mmol/L (137-145); Total Protein 6.3 g/dL (6.3-8.2)
[2025-01-09] MEDS: ACETAMINOPHEN 325 MG TABLET 650 MG PO (10:08)
[2025-01-09] MEDS: ESCITALOPRAM OXALATE 10 MG TABLET 20 MG PO (10:09)
[2025-01-09] MEDS: ZINC SULFATE 220 MG CAPSULE PO (10:09)
[2025-01-09] MEDS: MULTIVITAMINS THERAPEUTIC TAB (*BKC) 1 TABLET PO (10:09)
[2025-01-09] MEDS: CHOLECALCIFEROL (VITAMIN D3) 25 MCG (1,000 UNITS) TABLET PO (10:10)
[2025-01-09] MEDS: diphenhydrAMINE HCl CAP 25 MG CAPSULE PO (11:27)
[2025-01-09] MEDS: KETOROLAC 30 MG/ML VIAL (*BKC) IV PUSH ×2 (12:34→22:14)
[2025-01-09 13:13] VITALS: BP 128/76; PULSE 68; RESP 20; TEMP 36.3; O2SAT 99
[2025-01-09 20:00] VITALS: PULSE 89; RESP 18; O2SAT 99
[2025-01-09 20:44] VITALS: BP 151/85; PULSE 89; RESP 18; TEMP 36.8; O2SAT 99
[2025-01-09] MEDS: MELATONIN 5 MG TABLET PO (20:48)
[2025-01-09] MEDS: ENOXAPARIN 40 MG/0.4 ML SYRINGE SUB-Q (20:48)
[2025-01-10] MEDS: ceFAZolin 1 GM in SODIUM CHLORIDE 0.9% IV 50 ML 100 ML IVPB ×2 (02:08→09:48)
[2025-01-10 04:19] LABS: Hematocrit 30.5 % (37.0-47.0); Hemoglobin 9.2 g/dL (12.0-15.0); Immature Granulocyte Percent A 0.2 % (0-0.5); Lymphocytes Absolute Auto 3.29 K/mm3 (0.9-3.2); Mean Corpuscular HGB Conc 30.2 g/dl (32-36); Mean Corpuscular Hemoglobin 22.9 pg (26-34); Mean Corpuscular Volume 76.1 fl (80-100); Nucleated Red Blood Cells Absolute Auto 0.000 K/mm3 (0.0-0.012); Nucleated Red Blood Cells Perc 0.0 % (0.0-0.2); Platelet Count Result 247 k/mm3 (150-375); Red Blood Count 4.01 M/mm3 (4.2-5.4); White Blood Count 8.3 K/mm3 (4.5-10.0)
[2025-01-10 04:26] VITALS: BP 105/60; PULSE 66; RESP 16; TEMP 36.5; O2SAT 100
[2025-01-10 04:56] LABS: Alanine Aminotransferase 26 U/L (6-35); Albumin Level 3.6 g/dL (3.5-5.1); Alkaline Phosphatase 125 U/L (38-126); Anion Gap 5 mmol/L (4-12); Aspartate Amino Transferase 25 U/L (14-36); Bilirubin,Total 0.2 mg/dL (0.2-1.3); Blood Urea Nitrogen 11 mg/dL (7-17); Calcium 8.9 mg/dL (8.4-10.2); Carbon Dioxide 23 mmol/L (22-30); Chloride 108 mmol/L (98-107); Estimated CRCL calculation 144 ml/min; Estimated Glomerular Filt Rate > 60; Glucose 88 mg/dL (65-110); Potassium 4.0 mmol/L (3.4-5.0); Sodium 136 mmol/L (137-145); Total Protein 6.5 g/dL (6.3-8.2)
[2025-01-10] MEDS: VANCOMYCIN 1,500 MG/NS 500 ML 1,500 MG/500 ML BAG 250 MG IVPB ×2 (05:00→12:48)
[2025-01-10] MEDS: KETOROLAC 30 MG/ML VIAL (*BKC) IV PUSH (09:47)
[2025-01-10] MEDS: CHOLECALCIFEROL (VITAMIN D3) 25 MCG (1,000 UNITS) TABLET PO (09:47)
[2025-01-10] MEDS: MULTIVITAMINS THERAPEUTIC TAB (*BKC) 1 TABLET PO (09:47)
[2025-01-10] MEDS: ESCITALOPRAM OXALATE 10 MG TABLET 20 MG PO (09:47)
[2025-01-10] MEDS: ZINC SULFATE 220 MG CAPSULE PO (09:47)
[2025-01-10 14:00] VITALS: BP 155/67; PULSE 65; RESP 17; TEMP 36.6; O2SAT 98
--- NOTE | 2025-01-10 14:21 | P.DS_ITS ---
DS: Admitting Diagnosis Discharge Date 01/10/2025 Admitting Diagnosis Cellulitis DS: Discharge Diagnosis Discharge Diagnosis (1) Cellulitis: Qualifiers: Site of cellulitis: extremity Site of cellulitis of extremity: upper extremity Laterality: left Qualified Code(s): L03.114 - Cellulitis of left upper limb Code(s): L03.90 - Cellulitis, unspecified Status: Acute Assessment and Plan: Irregular area of purple to left ventral forearm surrounded by erythema extending throughout left forearm with warmth and swelling, tenderness to palpation. Lymphangitis streaking to left axillary region. Distal pulses intact. Tactile sensation intact. Unknown etiology. * failed outpatient Augmentin, doxycycline, ciprofloxacin and Bactrim * Ancef and vancomycin started on 01/08 * no concern for abscess, compartment syndrome * acetaminophen, Toradol, hydrocodone p.r.n. * Blood cultures pending * Leukocytosis has resolved (2) Anxiety: Code(s): F41.9 - Anxiety disorder, unspecified Status: Acute Assessment and Plan: Patient's grandfather few days ago. His services are today and patient is anxious about missing it. * continue Lexapro * Atarax p.r.n. Plan Diet: Regular GI prophylaxis: NA DVT prophylaxis: Lovenox lines/drains: PIV Fluids: 1 L LR Code status: Full DS: Summary Hospital Course Reason for hospitalization: Cellulitis Hospital Course: 34-year-old female with a past medical history of anxiety presents to the ED on 01/08/2025 with complaints of left arm redness. Patient first noticed the reddened area to her left mid forearm on Sunday evening stating it was roughly the size of the half dollar but later progressed to her elbow. Sunday, 01/05, she went to urgent care and received Augmentin and doxycycline which she states did not help. Patient was switched to ciprofloxacin and Bactrim on 01/07 which still has not improved. The redness has continued to spread despite her p.o. antibiotics and began streaking to her armpit today. Patient states it is tender to touch and warm. She denies fever, chills or injury to that arm. Initial vital signs 140/88, heart rate 70, respirations 20, afebrile and 100% on room air WBC 11.1, creatinine 0.66 alk phos 144, CRP 4.2 Left upper extremity Doppler study completed on 01/05 negative for DVT Hospital course: Patient was started on cefazolin and vancomycin on 01/08 given patient failed Augmentin, doxycycline, ciprofloxacin and Bactrim in the outpatient setting. Upon initial examination, no concern for abscess or compartment syndrome. She denied any numbness or tingling of the distal phalanges and was able to flex/extend the elbow and wrist of the left upper extremity. Blood cultures were drawn, showed no growth on preliminary result on 01/10. Leukocytosis resolved throughout hospitalization. Upon examination, cellulitis appears to have improved greatly, no evidence of lymphatic streaking on 01/10. Minimal erythema surrounding area of purple discoloration on L ventral forearm, but no tenderness to palpation, and she is able to flex/extend elbow/wrist without difficulty. Patient is otherwise hemodynamically stable for discharge at this time. We will prescribe dicloxacillin 500 mg to be taken 4 times daily for 10 days as she failed several oral antibiotic options. Patient is amenable to this plan and will follow-up with her PCP. Plan for discharge at this time. Status at Discharge Functional status at discharge: independent ambulation Overall status at discharge: patient is back to baseline Time Spent with Patient Time attestation: Total time spent providing and/or coordinating discharge services: 30 Exam Narrative: GENERAL: non-toxic appearing, in no acute distress. HEAD: Normocephalic, atraumatic. EYES: PERRLA. Conjunctivae clear. NOSE: Normal no drainage. THROAT: Pharynx clear, no exudate. NECK: Trachea midline. No adenopathy, no masses. RESPIRATORY: Airway patent, respirations nonlabored. CTA. CARDIOVASCULAR: Regular rate and rhythm BREASTS: Defer GASTROINTESTINAL: Abdomen is soft and nontender. No organomegaly. Bowel sounds normal in all quadrants. GENITOURINARY: Defer MUSCULOSKELETAL: Moves all extremities. Improving erythema surrounding irregular area of purple to left ventral forearm, nontender. Resolved lymphangitis. Distal pulses intact. Tactile sensation intact SKIN: Warm, dry, normal color with the exception of her left arm NEURO: A&O X4. Speech clear PSYCHIATRIC: Normal interaction DS: Data Data Completed and Pending Labs on day of discharge: Labs from last 24 hours 01/10/25 04:13 WBC 8.3 RBC 4.01 L Hgb 9.2 L Hct 30.5 L MCV 76.1 L MCH 22.9 L MCHC 30.2 L RDW 15.7 H Plt Count 247 MPV 8.9 Immature Gran % (Auto) 0.2 Neut % (Auto) 45.6 Lymph % (Auto) 39.9 [place] % (Auto) 8.1 Eos % (Auto) 5.6 H Baso % (Auto) 0.6 Lymph # (Auto) 3.29 H [place] # (Auto) 0.7 H Eos # (Auto) 0.5 H Baso # (Auto) 0.1 Abs Immat Gran (auto) 0.02 Absolute Neuts (auto) 3.8 Absolute Nucleated RBC 0.000 Nucleated RBC % 0.0 Sodium 136 L Potassium 4.0 Chloride 108 H Carbon Dioxide 23 Anion Gap 5 BUN 11 Creatinine 0.58 L Estim Creat Clear Calc 144 Estimated GFR > 60 Glucose 88 Calcium 8.9 Total Bilirubin 0.2 AST 25 ALT 26 Alkaline Phosphatase 125 Total Protein 6.5 Albumin 3.6 Vancomycin Trough 7.2 L Preliminary micro results at discharge 01/08/25 17:15 Blood Culture - Preliminary Blood 01/08/25 17:16 Blood Culture - Preliminary Blood Discharge Plan Discharge Attending physician on discharge: Samuel Cronin Consulting providers: Aneudy Suazo Discharging Clinician: Aneudy Suazo Anticipated Discharge Date/Time: 01/10/25 14:16 Patient Disposition: Home Activity: as tolerated Diet: regular Discharge Instructions: Discharge disposition: Home Take medications as prescribed. You will be prescribed Dicloxacillin to be taken every 6 hours for 10 days starting tomorrow. Monitor blood pressures Take caution while standing, rising, or moving Change positions slowly taking a break between each position change If you standing feel dizzy sit back down and take a break Encouraged to continue with yearly vaccinations Return to the emergency department if you develop sudden shortness of breath, chest pain, nausea, vomiting, upset stomach or intractable diarrhea Return to the emergency department if you develop fever greater than 101.5 Follow-up with the primary care physician within 1-2 weeks Thank you for [facility] for your healthcare needs Patient Instructions: Antibiotic Form Patient Language: Persian Stand Alone Forms: General Discharge Information Follow-up/Referrals: Tessa Palacios MD [Primary Care Provider, Internal Medicine] Discharge Medications: New dicloxacillin 500 mg capsule 500 mg PO Q6H 10 Days Qty: 40 0RF Continued escitalopram oxalate 20 mg tablet 20 mg PO DAILY multivitamin [Daily Multi-Vitamin] Tablet 1 tablet PO DAILY cholecalciferol (vitamin D3) 25 mcg (1,000 unit) capsule 25 mcg PO DAILY ascorbic acid (vitamin C) 500 mg capsule 500 mg PO DAILY multivitamin with minerals [Hair,Skin and Nails] Tablet 1 tablet PO DAILY vitamin E mixed 400 unit capsule 400 unit PO DAILY melatonin 10 mg capsule 10 mg PO HS Discontinued zinc 50 mg tablet 50 mg PO DAILY Date of admission: 01/08/25 16:55 Primary Care Provider: Tessa Palacios Admitting Provider: Samuel Cronin Attending physician on admission: Samuel Cronin Condition: Stable Quality VTE Prophylaxis VTE prophylaxis: pharmacologic ordered
== END 2025-01-10 15:20 | disposition home or self-care (01) ==
LOC: ANHED 16:47 → ANH2MED 17:48
PROVIDERS: Physician Assistant; Admitting Provider Internal Medicine; Emergency Provider Emergency Medicine; PCP Internal Medicine; Visit Provider Internal Medicine
DX: L03.114 Cellulitis of left upper limb (principal); F41.9 Anxiety disorder, unspecified
CPT/HCPCS: 36415; 80053; 80202; 83605; 85025; 85652; 86140; 87040; 96365; 96366; 96372; 96375; 96376; 99285; A9270; G0378; J0690; J1200; J1650; J1885; J3373; J7120